=== PATIENT | male | born 1960 | race Caucasian/White ===

== ENCOUNTER 2020-04-20 16:49 | Inpatient (IN) | payer BC, OTHER ==
[~2020-04-20] VITALS: Ht 177.8 cm; Wt 75.3 kg
[2020-04-20 19:00] VITALS: BP 163/93
[2020-04-20] MEDS ORDERED: NORVASC 2.5 MG2.5 M1 (23:43)
[2020-04-20] MEDS ORDERED: LIPITOR 20 MG T20 M1 (23:44)
[2020-04-20] MEDS ORDERED: FLOMAX0.4 MG PO (23:45)
[2020-04-20] MEDS ORDERED: AUGMENTIN 875-1 EACH (23:45)
[2020-04-20] MEDS ORDERED: HYDROCODON-ACE1 EAC7 PO (23:46)
[2020-04-20] MEDS ORDERED: PROTONIX40 M2 PO (23:46)
--- NOTE | 2020-04-21 00:07 | NUR ---
PT ARRIVED TO CCU RM 205 AT APPROX 1900 VIA CART FROM [facility]. PT AXOX4 ON 3L NC. NURSE TO INITATE ADMISSION PROCESS AND CARE PLAN.
[2020-04-21 00:08] VITALS: BP 137/84
[2020-04-21 03:10] LABS: HEMATOCRIT 27.7 % (42.0-52.0); HEMOGLOBIN 8.1 gm/dL (14.0-18.0); MCH 20.1 pg (26.0-34.0); MCHC 29.4 g/dL (28.0-37.0); MCV 68.5 fL (80.0-100.0); RBC 4.05 mil/uL (4.50-6.00); RDW 35.6 % (10.5-14.5); WBC 13.8 thou/uL (4.0-11.0)
[2020-04-21 03:30] LABS: ALBUMIN 2.6 g/dL (3.4-5.0); CALCIUM 8.6 mg/dL (8.5-10.1); CREATININE 8.6 mg/dL (0.7-1.3); POTASSIUM 4.6 mmol/L (3.5-5.1); TOTAL BILIRUBIN 0.4 mg/dL (0.2-1.0); TOTAL PROTEIN 6.1 g/dL (6.4-8.2)
[2020-04-21 04:42] VITALS: BP 137/89
[2020-04-21 08:12] VITALS: BP 172/101
[2020-04-21 11:30] VITALS: BP 153/73
[2020-04-21 12:21] LABS: URINE BILIRUBIN NEGATIVE (Negative); URINE BLOOD 3+ (Negative); URINE CLARITY CLEAR; URINE COLOR YELLOW; URINE GLUCOSE-RANDOM* NEGATIVE (Negative); URINE KETONES NEGATIVE (Negative); URINE LEUKOCYTES NEGATIVE (Negative); URINE NITRITE NEGATIVE (Negative); URINE PROTEIN (DIPSTICK) NEGATIVE (Negative); URINE SPECIFIC GRAVITY <= 1.005 (1.005-1.035); URINE UROBILINOGEN 0.2 E.U./dl (0.2-1.0)
[2020-04-21 12:22] LABS: PROT/CREAT RATIO 0.2; URINE CREATININE-RANDOM* 35.5 mg/dL; URINE PROTEIN-RANDOM* 8.7 mg/dL (<11.9)
[2020-04-21 12:40] LABS: SQUAMOUS 0-3 Few /LPF (0-3)
[2020-04-21 12:41] LABS: CASTS None Seen /LPF (None Seen)
[2020-04-21 12:42] LABS: BACTERIA 1-9 Few /HPF (None Seen); CRYSTALS None Seen /LPF (None Seen); URINE RBC 0-2 Rare /HPF (0-2); URINE WBC 0-5 Rare /HPF (0-5)
[2020-04-21 13:00] LABS: BE(vivo) -7.3 mmol/L (-2 to +3); HCO3 15.9 mmol/L (22.0-26.0); PCO2 25.1 mmHg (35.0-45.0); PO2 65.2 mmHg (80.0-100.0); pH 7.419 (7.360-7.450); sO2 93.6 % (92.0-98.0)
[2020-04-21 16:10] VITALS: BP 155/59
[2020-04-21 18:52] LABS: MAGNESIUM 2.6 mg/dL (1.8-2.4); POTASSIUM 4.5 mmol/L (3.5-5.1)
[2020-04-21 20:04] VITALS: BP 164/92
--- NOTE | 2020-04-21 20:14 | NUR ---
ASSUMMED PT CARE AT APPROXIMATELY 0700. PT A&O X4. ASSESSMENT CHARTED. FALL PRECAUTIONS IN PLACE. PT DENIES HAVING CHEST PAIN. PT STATED HE HAS SOB ON EXERSION. O2 SAT STABLE. VITAL SIGNS STABLE. PT STATED HE HAD CHRONIC NECK PAIN. PT RECEIVED ANALGESICS. PT STATED ANALGESICS HELPED RELIEVE PAIN. INFORMED DR. TERRAZAS OF URINE RETENSION. CATH INSERTED. INFORMED DR. TERRAZAS OF PT'S URINE OUTPUT AMOUNT. DR. TERRAZAS STATED UNDERSTANDING AND DENIED HAVING NEW ORDERS. PT COMFORTABLE. EDUCATED PT AND PT'C FAMILY ABOUT POC. PT AND PT'S FAMILY STATED UNDERSTANDING AND DENIED HAVING FURTHER QUESTIONS.
[2020-04-22 01:00] VITALS: BP 151/88
[2020-04-22 03:53] VITALS: BP 143/78
[2020-04-22 04:27] LABS: ALBUMIN 2.7 g/dL (3.4-5.0); MAGNESIUM 2.1 mg/dL (1.8-2.4); PHOSPHORUS 3.1 mg/dL (2.6-4.7); POTASSIUM 4.1 mmol/L (3.5-5.1)
[2020-04-22 04:30] LABS: % SATURATION 8 % (20-39); IRON 21 ug/dL (65-175); TIBC 269 ug/dL (250-450)
[2020-04-22 04:31] LABS: CREATININE 2.7 mg/dL (0.7-1.3)
[2020-04-22 04:38] LABS: HEMATOCRIT 29.3 % (42.0-52.0); HEMOGLOBIN 8.9 gm/dL (14.0-18.0); MCH 20.7 pg (26.0-34.0); MCHC 30.2 g/dL (28.0-37.0); MCV 68.4 fL (80.0-100.0); RBC 4.28 mil/uL (4.50-6.00); RDW 35.3 % (10.5-14.5); WBC 7.2 thou/uL (4.0-11.0)
[2020-04-22 05:00] LABS: FOLIC ACID 14.3 ng/mL (8.6-58.9)
[2020-04-22 08:59] VITALS: BP 163/88
[2020-04-22 12:24] VITALS: BP 143/81
--- NOTE | 2020-04-22 16:18 | NUR ---
AAOX4. MEDICATED FOR C/O OF GENERALIZED MUSCULOSKELETAL PAIN. IMPROVED RENAL STUDIES NOTED. COPIOUS MARKS OUTPUT; REPORTS DIMINISHED EDEMA. SR/ST PER TELE. FALL PRECAUTIONS IN PLACE.
[2020-04-22 17:25] VITALS: BP 143/75
[2020-04-23] VITALS (8 sets, daily range): BP systolic 144–156; BP diastolic 72–95
--- NOTE | 2020-04-23 04:17 | NUR ---
ASSUMED OT CARE AT 1900.VSS. PT A&0X4. PT HAD AN UNEVENTFUL NOC. POLYURIA PERSISTS; ABOUT 4L OUT THIS SHIFT. PT IS STABLE, MARKS INTACT. PAIN MANAGED PER MAR, WILL CONTINUE TO MONITOR PER POC
[2020-04-23 04:50] LABS: ALBUMIN 2.6 g/dL (3.4-5.0); CALCIUM 8.9 mg/dL (8.5-10.1); PHOSPHORUS 2.2 mg/dL (2.6-4.7); POTASSIUM 4.1 mmol/L (3.5-5.1)
[2020-04-23 04:55] LABS: CREATININE 1.2 mg/dL (0.7-1.3)
--- NOTE | 2020-04-23 09:55 | NUR ---
ORDERS RECEIVED FOR EVAL AND TREAT. SPOKE WITH Pt WHO STATES HE WALKED A COUPLE OF LAPS WITH SPOUSE YESTERDAY AND DOES NOT FEEL OFF BALANCE OR WEAK. Pt IS DECLINING A FORMAL P.T. EVAL.
--- NOTE | 2020-04-23 19:28 | NUR ---
PT CARE ASSUMED AT 0700. ASSESSMENTS CHARTED. MEDICATIONS CHARTED. RFA IV. SINUS RHYTHM. MARKS. POSSIBLE UROLOGY PROCEDURE TOMORROW. CHRONIC NECK/SHOULDER PAIN.
[2020-04-24 04:45] VITALS: BP 114/43; BP 153/94
--- NOTE | 2020-04-24 06:26 | NUR ---
ASSUMED CARE OF THE PATIENT AT 1900; AOX4/UP AD CAROL ANN; SR ON THE MONITOR; C/O PAIN MANAGED WITH PRN MEDICATIONS; MARKS IN PLACE WITH HIGH URINE OUTPUT; ON 2LPM NC WITH 02 SAT IN THE 90s; PLAN IS FOR PATIENT TO CONTINUE CURRENT THERAPY AND MARKS CATHETER USE WITH POSSIBLE D/C TU OR THU; WILL CONTINUE TO MONITOR AND FOLLOW POC.
[2020-04-24 08:00] VITALS: BP 169/68
--- NOTE | 2020-04-24 09:35 | NUR ---
Patient admits to [facility] with ARF. Patient has rothman placed. Plan to have rothman removed and may need to self cath at home. 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 Patient resides at home with . Has home oxygen with [facility]. Dr Priyanka Ward PCP. Patient ambulates independently in room and hallway. Plan home independently at discharge.
--- NOTE | 2020-04-24 11:30 | NUR ---
REFERRAL FAXED TO [facility]. CONFIRMED WITH [facility] THAT THEY CAN ACCEPT PATIENT IN [place], [place] AND PREFERRED CARE [employer]. PCP - DARWIN COLON [phone] [facility] P [phone]; FAX [phone]
[2020-04-24 12:02] VITALS: BP 169/68
[2020-04-24 12:51] VITALS: BP 143/76
--- NOTE | 2020-04-24 13:08 | NUR ---
DISCHARGED HOME WITH HOME HEALTH, IV REMOVED CATHETER TIP INTACT. PATEINT AND EDUCATED AND DEMENSTRATION OF CHANGING LEG BAG AND PROPER AYANNA CARE. PRINTED MATERIAL GAVE TO PT. NO QUESTIONS OR CONCERNS AT THIS TIME. PT OFF UNIT VIA, W/C BY LAMINATION ASSEMBLER. VS WNL AT THIS TIME
--- NOTE | 2020-04-24 16:10 | NUR ---
rec orders for home health at dc. Patient with no preference for home health care. dc strategic planner to arrange. Verified address.
== END 2020-04-24 13:40 | disposition home health service (06) | DRG 682 ==
LOC: EDSTATUS 16:49 → LAB 16:49 → 2N 18:49
PROVIDERS: Internal Medicine; Internal Medicine Nephrology; Nurse Practitioner Family; ADMIT Hospitalist; ATTEND Hospitalist
DX: N17.0 Acute kidney failure with tubular necrosis (principal); J96.01 Acute respiratory failure with hypoxia; N13.30 Unspecified hydronephrosis; D50.9 Iron deficiency anemia, unspecified; E78.5 Hyperlipidemia, unspecified; F17.210 Nicotine dependence, cigarettes, uncomplicated; K27.9 Peptic ulcer, site unspecified, unspecified as acute or chronic, without hemorrhage or perforation; G89.29 Other chronic pain; N18.9 Chronic kidney disease, unspecified; I12.9 Hypertensive chronic kidney disease with stage 1 through stage 4 chronic kidney disease, or unspecified chronic kidney disease; N13.9 Obstructive and reflux uropathy, unspecified; D72.829 Elevated white blood cell count, unspecified; N40.1 Benign prostatic hyperplasia with lower urinary tract symptoms; R33.8 Other retention of urine; J44.9 Chronic obstructive pulmonary disease, unspecified; Z91.018 Allergy to other foods; Z90.49 Acquired absence of other specified parts of digestive tract
CPT/HCPCS: 10081